=== PATIENT | female | born 1995 | race African-American/Black ===

== ENCOUNTER 2020-10-17 19:30 | Emergency (ER) | payer OTHER ==
[~2020-10-17] VITALS: Ht 162.6 cm; Wt 68.0 kg
[2020-10-17 19:35] VITALS: TEMP 99
[2020-10-17 19:48] LABS: PLATELET COUNT 333 K/uL (152-353)
[2020-10-17 19:56] LABS: POTASSIUM 3.5 mmol/L (3.6-5.2)
[2020-10-17 21:00] VITALS: BP 102/60
== END 2020-10-17 21:38 | disposition home or self-care (01) ==
LOC: ED 19:30 → EDBD 19:30 → ED 21:38
PROVIDERS: Emergency Medicine Emergency Medical Services
DX: T78.49XA Other allergy, initial encounter (principal); T63.441A Toxic effect of venom of bees, accidental (unintentional), initial encounter; Y93.89 Activity, other specified; Y92.89 Other specified places as the place of occurrence of the external cause
CPT/HCPCS: 36415; 80053; 85027; 96360; 96372; 96374; 96375; 99284; J0171; J1100; J1200